=== PATIENT | female | born 1955 | race Two or more races ===

== ENCOUNTER 2022-05-08 14:02 | Emergency (ER) | payer MEDICARE, OTHER ==
[~2022-05-08] VITALS: Ht 160 cm; Wt 89.0 kg
[2022-05-08 18:48] LABS: BASOPHILS % 0.6 % (0.0-2.0); EOSINOPHILS % 2.2 % (0.0-5.0); HEMATOCRIT. 41.4 % (36.0-48.0); HEMOGLOBIN. 13.9 g/dL (12.0-16.0); LYMPHOCYTES % 30.8 % (20.0-50.0); MEAN CORPUSCULAR HEMOGLOBIN 29.6 pg (28.0-32.0); MEAN CORPUSCULAR VOLUME 87.9 fL (81.0-99.0); MEAN PLATELET VOLUME 9.2 fl (7.4-10.4); MONOCYTES % 7.1 % (2.0-8.0); NEUTROPHILS % 59.3 % (40.0-76.0); PLATELET 204 x1000/uL (130-400); RED BLOOD CELL COUNT 4.71 mill/uL (4.2-5.4); RED CELL DISTRIBUTION WIDTH 14.3 % (11.6-14.6)
[2022-05-08 18:57] LABS: CHLORIDE 107 mEq/L (98-107)
[2022-05-08] MEDS ORDERED: KETOROLAC 60MG/2ML VIAL IM ONE (19:30)
[2022-05-08 19:50] VITALS: BP 135/74
== END 2022-05-08 19:51 | disposition home or self-care (01) ==
LOC: ER 14:02
DX: R22.43 Localized swelling, mass and lump, lower limb, bilateral (principal)
CPT/HCPCS: 36415; 71045; 80048; 83880; 85025; 93970; 96372; 99285; J1885